=== PATIENT | male | born 1960 | race Hispanic/Latino ===

== ENCOUNTER 2023-03-14 13:24 | Inpatient (IN) | payer BC ==
[2023-03-14 14:16] LABS: #Eosinphils 0.1 thou/uL (0.0-0.7); #Monocytes 0.5 thou/uL (0.11-0.59); #Neutrophils 3.8 thou/uL (1.40-6.50); %Basophils 0.5 % (0.0-1.0); %Eosinophils 2.2 % (0.0-10.0); %Lymphocytes 23.2 % (21.0-51.0); %Monocytes 8.8 % (0.0-10.0); Hematocrit 41.5 % (42.0-52.0); Hemoglobin 14.5 g/dL (14.0-18.0); Mean Corpuscular HGB CONC 34.9 g/dL (32.0-36.0); Mean Corpuscular Hemoglobin 30.1 pg (27.0-31.0); Mean Corpuscular Volume 86.3 fl (78.0-98.0); Mean Platelet Volume 10.6 fL (7.4-10.4); Platelet Count 205 10x3/uL (130-400); RBC Distribution Width 12.3 % (11.5-14.5); Red Blood Cell (RBC) Count 4.81 mill/uL (4.70-6.10); White Blood Cell (WBC) Count 5.9 10x3/uL (4.8-10.8)
[2023-03-14 14:27] LABS: ALT (SGPT) 29 U/L (8-55); AST (SGOT) 21 U/L (5-34); Albumin 4.5 g/dL (3.4-4.8); Alkaline Phosphatase 72 U/L (40-110); Anion Gap 10 mmol/L (10-20); BUN (Urea Nitrogen) 18 mg/dL (8.4-25.7); Bilirubin, Total 0.7 mg/dL (0.2-1.2); Calc. Creatinine Clearance 0 mL/min (70-130); Calcium 9.4 mg/dL (7.8-10.44); Carbon Dioxide 25 mmol/L (23-31); Chloride 108 mmol/L (98-107); Estimated GFR 98; Globulin 2.9 g/dL (2.4-3.5); Glucose 114 mg/dL (80-115); Potassium 3.9 mmol/L (3.5-5.1); Protein, Total 7.4 g/dL (5.8-8.1); Sodium 139 mmol/L (136-145)
[2023-03-14 14:29] LABS: PTT 27.2 sec (22.9-36.1); Prothrombin Time 13.1 sec (12.0-14.7)
[2023-03-14 14:31] LABS: Troponin I Less than 0.010 ng/mL (< 0.028)
[2023-03-14] MEDS ORDERED: Iopamidol-370 76% 500 ML MDV (1 ML CHARGE) ONE (15:08)
[2023-03-14 15:29] LABS: Bacteria/HPF None Seen HPF (None Seen); Bilirubin Negative (Negative); Blood, Urine Negative (Negative); CAUTI Indications for Culture Alt mental st,lethar; Clarity Clear (Clear); Glucose, Urine (Dipstick) Normal (Negative); Ketone, Urine 10 mg/dL (Negative); Leukocyte Negative Leu/uL (Negative); Nitrite Negative (Negative); Protein, Urine (Dipstick) Negative (Neg-Trace); RBC/HPF None Seen HPF (0-3); Specific Gravity, Urine 1.032 (1.002-1.036); Squamous Epithelial None Seen HPF (0-3); Urobilinogen Normal mg/dL (Less than 2); WBC/HPF 0-3 HPF (0-3)
[2023-03-14 15:35] LABS: Urine Culture Reflex No No
[2023-03-14] MEDS ORDERED: Aspirin 325 MG TAB ONE (16:39)
[2023-03-14] MEDS ORDERED: Lidocaine 1% PF 5 ML VIAL ONE (16:54)
[2023-03-14] MEDS ORDERED: Insulin Regular 300 UNITS/3 ML VIAL SC PRN ×3 (18:05→18:08)
[2023-03-14] MEDS ORDERED: hydrALAZINE 20 MG/ML VIAL SLOW IVP PRN (18:05)
[2023-03-14] MEDS ORDERED: Dextrose 5% in Water 1,000 ML IV PRN (18:08)
[2023-03-14] MEDS ORDERED: Dextrose 50% Abboject 50 ML SYRINGE SLOW IVP PRN (18:08)
[2023-03-14] MEDS ORDERED: Glucagon 1 MG/ML KIT IM PRN (18:08)
[2023-03-14 19:01] VITALS: BMI 27.8
[2023-03-14 19:39] LABS: Hemoglobin A1c 5.8 % (4.0-6.0)
[2023-03-14] MEDS: Atorvastatin Calcium 40 MG TAB PO SCH (20:30)
[2023-03-15 01:23] LABS: Amphetamine Not Detected (NotDetected); Barbiturates Screen Not Detected (NotDetected); Benzodiazepine Screen Not Detected (NotDetected); Cocaine Metabolite Screen Not Detected (NotDetected); Methadone Not Detected (NotDetected); Methamphetamine Not Detected (NotDetected); Opiate Screen Not Detected (NotDetected); Oxycodone Screen Not Detected (NotDetected); Phencyclidine (PCP) Not Detected (NotDetected); THC/Cannabinoid Screen Not Detected (NotDetected); Tricyclic Screen Not Detected (NotDetected)
[2023-03-15 05:42] LABS: #Eosinphils 0.3 thou/uL (0.0-0.7); #Monocytes 0.6 thou/uL (0.11-0.59); #Neutrophils 3.3 thou/uL (1.40-6.50); %Basophils 0.7 % (0.0-1.0); %Eosinophils 4.6 % (0.0-10.0); %Lymphocytes 29.7 % (21.0-51.0); %Monocytes 10.1 % (0.0-10.0); %Neutrophils 54.7 % (42.0-75.0); Hematocrit 39.1 % (42.0-52.0); Hemoglobin 13.5 g/dL (14.0-18.0); Mean Corpuscular HGB CONC 34.5 g/dL (32.0-36.0); Mean Corpuscular Hemoglobin 30.1 pg (27.0-31.0); Mean Corpuscular Volume 87.3 fl (78.0-98.0); Mean Platelet Volume 10.7 fL (7.4-10.4); Platelet Count 179 10x3/uL (130-400); RBC Distribution Width 12.5 % (11.5-14.5); Red Blood Cell (RBC) Count 4.48 mill/uL (4.70-6.10); White Blood Cell (WBC) Count 6.1 10x3/uL (4.8-10.8)
[2023-03-15 06:05] LABS: ALT (SGPT) 23 U/L (8-55); AST (SGOT) 16 U/L (5-34); Albumin 3.7 g/dL (3.4-4.8); Alkaline Phosphatase 65 U/L (40-110); Anion Gap 11 mmol/L (10-20); BUN (Urea Nitrogen) 24 mg/dL (8.4-25.7); Bilirubin, Total 0.6 mg/dL (0.2-1.2); Calc. Creatinine Clearance 126 mL/min (70-130); Calcium 8.9 mg/dL (7.8-10.44); Carbon Dioxide 24 mmol/L (23-31); Cardiac Risk 4.8 (Less than 4.5); Chloride 107 mmol/L (98-107); Cholesterol 172 mg/dl (< 200 Desired); Estimated GFR 101; Globulin 2.5 g/dL (2.4-3.5); Glucose 110 mg/dL (80-115); HDL Cholesterol 36 mg/dL (>60 Neg Risk); LDL Cholesterol, Calculated 109 mg/dL; Potassium 3.6 mmol/L (3.5-5.1); Protein, Total 6.2 g/dL (5.8-8.1); Sodium 138 mmol/L (136-145); Triglycerides 136 mg/dL (Less than 150)
[2023-03-15] MEDS: Aspirin 81 mg Enteric Coated Tablet PO SCH (08:59)
[2023-03-15] MEDS: Atorvastatin Calcium 40 MG TAB PO SCH (20:13)
[2023-03-15] MEDS ORDERED: Tamsulosin HCl 0.4 MG CAP PO SCH (21:00)
[2023-03-16] MEDS ORDERED: Acetaminophen 325 MG TAB PO PRN (06:37)
[2023-03-16] MEDS: Aspirin 81 mg Enteric Coated Tablet PO SCH (07:53)
[2023-03-16 11:37] VITALS: BP 155/79; TEMP 97.9
== END 2023-03-16 11:45 | disposition home or self-care (01) | DRG 66 ==
LOC: ERS 13:24 → 2SE 17:32 → OBSVTOIN 03-15 15:03
PROVIDERS: ADMIT Internal Medicine; ATTEND Internal Medicine Critical Care Medicine
DX: I63.9 Cerebral infarction, unspecified (principal); N40.0 Benign prostatic hyperplasia without lower urinary tract symptoms; E11.9 Type 2 diabetes mellitus without complications; F10.90 Alcohol use, unspecified, uncomplicated; E78.5 Hyperlipidemia, unspecified; Z90.49 Acquired absence of other specified parts of digestive tract; Z83.3 Family history of diabetes mellitus
CPT/HCPCS: 0042T; 12001; 36415; 36416; 70450; 70496; 70498; 70551; 71045; 80053; 80061; 80306; 81001; 83036; 84484; 85025; 85610; 85730; 93005; 93306; 94760; 96372; G0378; J1650; Q9967